=== PATIENT | female | born 1945 | race Caucasian/White ===

== ENCOUNTER 2016-06-10 01:53 | Inpatient (IN) | payer MEDICARE ==
[~2016-06-10] VITALS: Ht 172.7 cm; Wt 79.6 kg
[~2016-06-10 01:53] MED LIST: AMIO200T42 PO; ASPI-515 PO; BENZ100C4 PO; CEFD300C2 PO; DOXY100T PO; FERR140T2 PO; FERR324T5 PO; FURO20TA3 PO; METO-99 PO; METO100T3 PO; METO25TA35 PO; METO25TA91 PO; OXYC5CAP4 PO; POTA20TA91 PO; PRED20TA PO; RIVA20TA PO; SITA1TAB PO; SITA1TAB5 PO; TRAM50TA2 PO
[2016-06-10] MEDS ORDERED: SODIUM CHLORIDE 0.9% 1,000ML IVBOLUS ONE ×2 (02:30→04:00)
[2016-06-10 02:46] LABS: HEMOGLOBIN 9.2 g/dL (11.7-16.4)
[2016-06-10 02:56] LABS: ASPARTATE AMINO TRANSFERASE 68 U/L (15-37); BLOOD UREA NITROGEN 26 mg/dL (7-18)
[2016-06-10] MEDS ORDERED: PIPERACILLIN/TAZO/PMX 3.375GM 50 ML IV ONE (03:00)
[2016-06-10 03:06] LABS: DIFF TOTAL CELLS COUNTED 100 CELL DIFF
[2016-06-10 03:10] LABS: ANISOCYTOSIS 1+
[2016-06-10 03:11] LABS: LARGE PLATELETS 1+; POLYCHROMASIA 1+
[2016-06-10 03:12] LABS: VERIFY COUNTS? YES
[2016-06-10] MEDS ORDERED: PIPERACILLIN/TAZO/PMX 3.375GM 50 ML ONE (03:42)
[2016-06-10] MEDS ORDERED: VANCOMYCIN PER PHARMACY IV ONE (04:00)
[2016-06-10] MEDS ORDERED: VANCOMYCIN 1,400 MG in SODIUM CHLORIDE 0.9% 250 ML IV ONE (04:00)
[2016-06-10] MEDS: SODIUM CHLORIDE 0.9% 1,000 ML IV SCH ×4 (04:21→22:18)
[2016-06-10] MEDS ORDERED: ONDANSETRON 2MG/ML, 2ML ONE (04:25)
[2016-06-10] MEDS ORDERED: BISACODYL 10 MG SUPP PR PRN (04:30)
[2016-06-10] MEDS ORDERED: VANCOMYCIN PER PHARMACY MC PRN (04:30)
[2016-06-10] MEDS ORDERED: ONDANSETRON 2MG/ML, 2ML IVP PRN (04:30)
[2016-06-10] MEDS: PIPERACILLIN/TAZO/PMX 3.375GM 50 ML IV SCH ×4 (04:57→21:16)
[2016-06-10] MEDS ORDERED: ONDANSETRON 2MG/ML, 2ML IVPush ONE (05:00)
[2016-06-10] MEDS ORDERED: PHARMACOKINETIC CONSULTATION MC ONE (06:30)
[2016-06-10] MEDS ORDERED: PHARMACOKINETIC MONITORING MC PRN (06:30)
[2016-06-10] MEDS: MORPHINE SULFATE 4 MG/ML, 1ML IVPush PRN ×2 (07:24→20:17)
[2016-06-10] MEDS: INSULIN REGULAR 100 UNITS/ML, 3ML VIAL SQ-INSULIN SCH ×4 (07:47→21:33)
[2016-06-10] MEDS: KETOROLAC 30 MG/1 ML IV SCH ×3 (10:51→21:15)
[2016-06-10] MEDS: NOREPINEPHRINE 4 MG in SODIUM CHLORIDE 0.9% 246 ML IV PRN ×2 (11:52→22:19)
[2016-06-10 15:22] VITALS: BP 82/48
[2016-06-10] MEDS: ENOXAPARIN 40 MG/0.4 ML SQ SCH (17:23)
[2016-06-11] MEDS: KETOROLAC 30 MG/1 ML IV SCH ×4 (03:53→22:44)
[2016-06-11] MEDS: PIPERACILLIN/TAZO/PMX 3.375GM 50 ML IV SCH ×3 (03:54→17:20)
[2016-06-11] MEDS: SODIUM CHLORIDE 0.9% 1,000 ML IV SCH ×2 (03:54→20:23)
[2016-06-11 04:12] LABS: HEMOGLOBIN 8.4 g/dL (11.7-16.4)
[2016-06-11 04:26] LABS: ASPARTATE AMINO TRANSFERASE 55 U/L (15-37); BLOOD UREA NITROGEN 17 mg/dL (7-18)
[2016-06-11 04:28] LABS: DIFF TOTAL CELLS COUNTED 100 CELL DIFF
[2016-06-11] MEDS: INSULIN REGULAR 100 UNITS/ML, 3ML VIAL SQ-INSULIN SCH ×4 (04:30→20:39)
[2016-06-11 04:32] LABS: ANISOCYTOSIS 1+; VERIFY COUNTS? YES
[2016-06-11 04:33] LABS: LARGE PLATELETS 1+; POIKILOCYTOSIS 1+; POLYCHROMASIA 1+
[2016-06-11 05:24] LABS: HEPATITIS C VIRUS ANTIBODY Nonreactive (Nonreactive)
[2016-06-11] MEDS ORDERED: MAGNESIUM SULFATE PMX 4GM/100M 100 ML IV ONE (07:30)
[2016-06-11 13:58] VITALS: BP 102/62
[2016-06-11] MEDS: MORPHINE SULFATE 4 MG/ML, 1ML IVPush PRN (15:48)
[2016-06-11] MEDS ORDERED: GADOBUTROL 10 MMOL/10 ML PFS ONE (15:53)
[2016-06-11] MEDS: ENOXAPARIN 40 MG/0.4 ML SQ SCH (17:20)
[2016-06-11 18:38] VITALS: BP 107/54
[2016-06-12] MEDS: PIPERACILLIN/TAZO/PMX 3.375GM 50 ML IV SCH ×4 (00:17→18:53)
[2016-06-12 00:52] VITALS: BP 106/55
[2016-06-12] MEDS: MORPHINE SULFATE 4 MG/ML, 1ML IVPush PRN ×2 (02:14→12:46)
[2016-06-12] MEDS: INSULIN REGULAR 100 UNITS/ML, 3ML VIAL SQ-INSULIN SCH ×4 (04:30→20:48)
[2016-06-12] MEDS: KETOROLAC 30 MG/1 ML IV SCH ×4 (04:35→22:02)
[2016-06-12 05:17] LABS: HEMOGLOBIN 8.1 g/dL (11.7-16.4)
[2016-06-12 05:50] LABS: DIFF TOTAL CELLS COUNTED 100 CELL DIFF
[2016-06-12 05:52] LABS: ANISOCYTOSIS 1+; HYPOCHROMIA 1+; POLYCHROMASIA 1+; VERIFY COUNTS? YES
[2016-06-12 05:53] LABS: LARGE PLATELETS 1+
[2016-06-12 05:55] LABS: SCHISTOCYTES 1+
[2016-06-12 06:00] LABS: MICROCYTOSIS 1+
[2016-06-12 08:34] VITALS: BP 136/82
[2016-06-12] MEDS: METOPROLOL TARTRATE 25 MG TABLET PO SCH ×2 (09:02→18:19)
[2016-06-12 12:25] VITALS: BP 111/70
[2016-06-12] MEDS ORDERED: SODIUM BICARBONATE 4.2%, 5ML ONE (14:18)
[2016-06-12] MEDS ORDERED: LIDOCAINE 2%, 20ML ONE (14:19)
[2016-06-12] MEDS ORDERED: MIDAZOLAM 1 MG/ML, 5ML ONE (14:35)
[2016-06-12] MEDS ORDERED: NALOXONE 1 MG/ML, 2ML ONE (14:36)
[2016-06-12] MEDS ORDERED: FENTANYL PF 100 MCG/2ML ONE (14:36)
[2016-06-12] MEDS ORDERED: FLUMAZENIL 0.1 MG/1 ML, 5ML ONE (14:36)
[2016-06-12] MEDS: SODIUM CHLORIDE 0.9% 1,000 ML IV SCH (18:11)
[2016-06-12] MEDS: ENOXAPARIN 40 MG/0.4 ML SQ SCH (18:20)
[2016-06-12 19:43] VITALS: BP 98/58
[2016-06-13] MEDS: PIPERACILLIN/TAZO/PMX 3.375GM 50 ML IV SCH ×5 (00:08→23:17)
[2016-06-13] MEDS: SODIUM CHLORIDE 0.9% 1,000 ML IV SCH ×3 (00:21→20:32)
[2016-06-13 01:17] VITALS: BP 106/68
[2016-06-13] MEDS: KETOROLAC 30 MG/1 ML IV SCH ×4 (03:59→20:32)
[2016-06-13] MEDS: METOPROLOL TARTRATE 25 MG TABLET PO SCH ×2 (05:11→18:34)
[2016-06-13 05:47] LABS: HEMOGLOBIN 8.4 g/dL (11.7-16.4)
[2016-06-13 06:22] LABS: DIFF TOTAL CELLS COUNTED 100 CELL DIFF
[2016-06-13 06:23] LABS: ASPARTATE AMINO TRANSFERASE 46 U/L (15-37); BLOOD UREA NITROGEN 17 mg/dL (7-18); VERIFY COUNTS? YES
[2016-06-13 06:25] LABS: ANISOCYTOSIS 1+; POLYCHROMASIA 1+
[2016-06-13 06:26] LABS: LARGE PLATELETS 1+
[2016-06-13] MEDS: INSULIN REGULAR 100 UNITS/ML, 3ML VIAL SQ-INSULIN SCH ×4 (07:00→20:34)
[2016-06-13 08:44] VITALS: BP 113/81
[2016-06-13] MEDS ORDERED: LIDOCAINE 2%, 20ML ONE (10:20)
[2016-06-13] MEDS ORDERED: SODIUM BICARBONATE 4.2%, 5ML ONE (10:20)
[2016-06-13 11:30] VITALS: BP 104/59
[2016-06-13 11:53] LABS: CYTOLOGY BODY FLUID RECD INTO PATHOLOGY; CYTOLOGY BODY FLUID SOURCE PLEURAL FLUID
[2016-06-13 14:56] VITALS: BP 112/69
[2016-06-13] MEDS: ENOXAPARIN 40 MG/0.4 ML SQ SCH (17:07)
[2016-06-13 20:41] VITALS: BP 95/63
[2016-06-13] MEDS: MORPHINE SULFATE 4 MG/ML, 1ML IVPush PRN (23:17)
[2016-06-14 01:52] VITALS: BP 121/74
[2016-06-14] MEDS: KETOROLAC 30 MG/1 ML IV SCH ×4 (04:19→20:58)
[2016-06-14 05:03] LABS: HEMOGLOBIN 8.3 g/dL (11.7-16.4)
[2016-06-14] MEDS: PIPERACILLIN/TAZO/PMX 3.375GM 50 ML IV SCH ×4 (05:18→23:10)
[2016-06-14] MEDS: SODIUM CHLORIDE 0.9% 1,000 ML IV SCH (05:18)
[2016-06-14] MEDS: METOPROLOL TARTRATE 25 MG TABLET PO SCH (05:20)
[2016-06-14 05:24] LABS: ASPARTATE AMINO TRANSFERASE 35 U/L (15-37); BLOOD UREA NITROGEN 15 mg/dL (7-18)
[2016-06-14] MEDS: INSULIN REGULAR 100 UNITS/ML, 3ML VIAL SQ-INSULIN SCH ×4 (07:00→20:57)
[2016-06-14 08:30] VITALS: BP 104/69
[2016-06-14] MEDS: MORPHINE SULFATE 4 MG/ML, 1ML IVPush PRN ×2 (10:07→21:59)
[2016-06-14 14:55] VITALS: BP 118/78
[2016-06-14] MEDS: ENOXAPARIN 40 MG/0.4 ML SQ SCH (17:52)
[2016-06-14] MEDS: METOPROLOL TARTRATE 50 MG TABLET PO SCH (17:52)
[2016-06-14 20:59] VITALS: BP 122/75
[2016-06-15 00:32] VITALS: BP 98/62
[2016-06-15] MEDS: KETOROLAC 30 MG/1 ML IV SCH (03:05)
[2016-06-15 03:26] LABS: HEMOGLOBIN 8.1 g/dL (11.7-16.4)
[2016-06-15 03:46] LABS: DIFF TOTAL CELLS COUNTED 100 CELL DIFF
[2016-06-15 03:48] LABS: ANISOCYTOSIS 1+; LARGE PLATELETS 1+; POLYCHROMASIA 1+; VERIFY COUNTS? YES
[2016-06-15] MEDS: METOPROLOL TARTRATE 50 MG TABLET PO SCH ×2 (05:31→21:35)
[2016-06-15] MEDS: PIPERACILLIN/TAZO/PMX 3.375GM 50 ML IV SCH ×4 (05:32→23:46)
[2016-06-15] MEDS: MORPHINE SULFATE 4 MG/ML, 1ML IVPush PRN ×2 (05:32→21:36)
[2016-06-15 07:15] VITALS: BP 109/70
[2016-06-15] MEDS: INSULIN REGULAR 100 UNITS/ML, 3ML VIAL SQ-INSULIN SCH ×4 (08:36→21:36)
[2016-06-15 14:00] VITALS: BP 108/71
[2016-06-15] MEDS: AMIODARONE 200 MG TABLET PO SCH (16:48)
[2016-06-15 18:21] LABS: ANA SCREEN NEGATIVE (Negative)
[2016-06-15] MEDS: RIVAROXABAN 20 MG TABLET PO SCH (18:37)
[2016-06-15 19:30] VITALS: BP 148/90
[2016-06-16 01:15] VITALS: BP 115/80
[2016-06-16 04:01] LABS: HEMOGLOBIN 7.9 g/dL (11.7-16.4)
[2016-06-16 04:05] LABS: ASPARTATE AMINO TRANSFERASE 24 U/L (15-37); BLOOD UREA NITROGEN 9 mg/dL (7-18)
[2016-06-16 04:20] LABS: DIFF TOTAL CELLS COUNTED 100 CELL DIFF
[2016-06-16 04:22] LABS: ANISOCYTOSIS 1+; POLYCHROMASIA 1+; VERIFY COUNTS? YES
[2016-06-16 04:24] LABS: GIANT PLATELETS 1+; LARGE PLATELETS 1+
[2016-06-16] MEDS: PIPERACILLIN/TAZO/PMX 3.375GM 50 ML IV SCH ×4 (06:03→23:00)
[2016-06-16] MEDS: METOPROLOL TARTRATE 50 MG TABLET PO SCH ×2 (06:03→16:59)
[2016-06-16] MEDS: INSULIN REGULAR 100 UNITS/ML, 3ML VIAL SQ-INSULIN SCH ×4 (07:00→22:24)
[2016-06-16 07:02] VITALS: BP 127/79
[2016-06-16] MEDS ORDERED: AMIODARONE 200 MG TABLET PO SCH (09:00)
[2016-06-16] MEDS: FUROSEMIDE 20 MG TABLET PO SCH (09:45)
[2016-06-16] MEDS: AMIODARONE 200 MG TABLET PO SCH (09:45)
[2016-06-16] MEDS: ERGOCALCIFEROL 50,000 UNIT CAPSULE PO SCH (11:18)
[2016-06-16 12:31] VITALS: BP 102/63
[2016-06-16 14:07] LABS: IGG SUBCLASS 1 288 mg/dL (422-1292); IGG SUBCLASS 2 180 mg/dL (117-747); IGG SUBCLASS 3 79 mg/dL (41-129); IGG SUBCLASS 4 21 mg/dL (1-291); IMMUNOGLOBULIN G 558 mg/dL (700-1600)
[2016-06-16] MEDS: RIVAROXABAN 20 MG TABLET PO SCH (16:59)
[2016-06-16 20:20] VITALS: BP 119/73
[2016-06-16] MEDS: MORPHINE SULFATE 4 MG/ML, 1ML IVPush PRN (22:24)
[2016-06-17 02:55] VITALS: BP 112/70
[2016-06-17] MEDS: MORPHINE SULFATE 4 MG/ML, 1ML IVPush PRN ×2 (03:26→22:06)
[2016-06-17] MEDS: METOPROLOL TARTRATE 50 MG TABLET PO SCH ×2 (05:35→17:22)
[2016-06-17] MEDS: PIPERACILLIN/TAZO/PMX 3.375GM 50 ML IV SCH ×4 (05:35→23:17)
[2016-06-17 06:03] LABS: HEMOGLOBIN 8.4 g/dL (11.7-16.4)
[2016-06-17 06:11] LABS: BLOOD UREA NITROGEN 7 mg/dL (7-18)
[2016-06-17 06:25] LABS: DIFF TOTAL CELLS COUNTED 100 CELL DIFF
[2016-06-17 06:42] VITALS: BP 112/70
[2016-06-17 06:46] LABS: ANISOCYTOSIS 1+; GIANT PLATELETS 1+; LARGE PLATELETS 1+; POLYCHROMASIA 1+; VERIFY COUNTS? YES
[2016-06-17] MEDS: INSULIN REGULAR 100 UNITS/ML, 3ML VIAL SQ-INSULIN SCH ×4 (07:00→22:05)
[2016-06-17] MEDS: FUROSEMIDE 20 MG TABLET PO SCH (08:42)
[2016-06-17] MEDS: AMIODARONE 200 MG TABLET PO SCH (08:42)
[2016-06-17 12:55] VITALS: BP 114/75
[2016-06-17 16:51] LABS: HEMOGLOBIN 8.6 g/dL (11.7-16.4)
[2016-06-17 18:48] LABS: OCCBLD OBC PASS
[2016-06-17 19:27] VITALS: BP 115/77
[2016-06-18 02:37] VITALS: BP 122/71
[2016-06-18] MEDS: METOPROLOL TARTRATE 50 MG TABLET PO SCH ×2 (06:40→18:00)
[2016-06-18] MEDS: PIPERACILLIN/TAZO/PMX 3.375GM 50 ML IV SCH ×3 (06:40→18:30)
[2016-06-18] MEDS: AMIODARONE 200 MG TABLET PO SCH (08:26)
[2016-06-18] MEDS: INSULIN REGULAR 100 UNITS/ML, 3ML VIAL SQ-INSULIN SCH ×4 (08:26→19:55)
[2016-06-18] MEDS: FUROSEMIDE 20 MG TABLET PO SCH (09:00)
[2016-06-18 09:04] VITALS: BP 101/68
[2016-06-18 10:19] LABS: HEMOGLOBIN 8.1 g/dL (11.7-16.4)
[2016-06-18] MEDS ORDERED: MAGNESIUM HYDROXIDE 8%, 30ML UDC PO PRN (12:00)
[2016-06-18] MEDS ORDERED: FUROSEMIDE 20 MG/2 ML IV ONE (12:00)
[2016-06-18] MEDS: GUAIFENESIN 200 MG TABLET PO PRN ×2 (12:25→21:27)
[2016-06-18 13:33] VITALS: BP 92/61
[2016-06-18 16:58] LABS: HEMOGLOBIN 8.3 g/dL (11.7-16.4)
[2016-06-18] MEDS ORDERED: OMNIPAQUE 350 MG/ML, 100ML BOTTLE ONE (19:16)
[2016-06-18 19:39] VITALS: BP 155/85
[2016-06-18] MEDS: MORPHINE SULFATE 4 MG/ML, 1ML IVPush PRN (19:48)
[2016-06-18 21:38] LABS: HEMOGLOBIN 8.3 g/dL (11.7-16.4)
[2016-06-19 01:50] VITALS: BP 116/67
[2016-06-19] MEDS: MORPHINE SULFATE 4 MG/ML, 1ML IVPush PRN ×3 (02:05→22:36)
[2016-06-19 03:22] LABS: HEMOGLOBIN 8.1 g/dL (11.7-16.4)
[2016-06-19 03:24] LABS: ASPARTATE AMINO TRANSFERASE 23 U/L (15-37); BLOOD UREA NITROGEN 7 mg/dL (7-18)
[2016-06-19 04:27] LABS: DIFF TOTAL CELLS COUNTED 100 CELL DIFF
[2016-06-19 04:29] LABS: ANISOCYTOSIS 1+
[2016-06-19 04:30] LABS: POLYCHROMASIA 1+
[2016-06-19 04:31] LABS: VERIFY COUNTS? YES
[2016-06-19] MEDS: PIPERACILLIN/TAZO/PMX 3.375GM 50 ML IV SCH ×5 (06:04→23:45)
[2016-06-19] MEDS: METOPROLOL TARTRATE 50 MG TABLET PO SCH ×2 (06:04→18:00)
[2016-06-19] MEDS: INSULIN REGULAR 100 UNITS/ML, 3ML VIAL SQ-INSULIN SCH ×4 (07:00→20:27)
[2016-06-19] MEDS: FUROSEMIDE 20 MG TABLET PO SCH (09:18)
[2016-06-19] MEDS: POLYETHYLENE GLYCOL 17 GM PACKET PO SCH (09:19)
[2016-06-19] MEDS: AMIODARONE 200 MG TABLET PO SCH (09:19)
[2016-06-19 09:29] VITALS: BP 102/64
[2016-06-19 10:18] LABS: HEMOGLOBIN 8.1 g/dL (11.7-16.4)
[2016-06-19 13:25] VITALS: BP 95/54
[2016-06-19 16:37] LABS: HEMOGLOBIN 8.5 g/dL (11.7-16.4)
[2016-06-19 19:15] VITALS: BP 104/68
[2016-06-19 21:22] LABS: HEMOGLOBIN 8.1 g/dL (11.7-16.4)
[2016-06-20] MEDS: MORPHINE SULFATE 4 MG/ML, 1ML IVPush PRN ×3 (01:46→21:30)
[2016-06-20 03:12] VITALS: BP 99/63
[2016-06-20 03:45] LABS: HEMOGLOBIN 7.7 g/dL (11.7-16.4)
[2016-06-20 04:19] LABS: ANISOCYTOSIS 1+; POLYCHROMASIA 1+
[2016-06-20 04:20] LABS: LARGE PLATELETS 1+; POIKILOCYTOSIS 1+
[2016-06-20 05:07] LABS: ASPARTATE AMINO TRANSFERASE 19 U/L (15-37); BLOOD UREA NITROGEN 7 mg/dL (7-18)
[2016-06-20] MEDS: PIPERACILLIN/TAZO/PMX 3.375GM 50 ML IV SCH ×3 (05:44→18:27)
[2016-06-20] MEDS: METOPROLOL TARTRATE 50 MG TABLET PO SCH ×2 (05:44→18:27)
[2016-06-20] MEDS: INSULIN REGULAR 100 UNITS/ML, 3ML VIAL SQ-INSULIN SCH ×4 (07:00→21:33)
[2016-06-20 07:43] VITALS: BP 106/67
[2016-06-20] MEDS ORDERED: POTASSIUM CHLORIDE 20 MEQ TAB.ER.PRT PO ONE (08:00)
[2016-06-20] MEDS: AMIODARONE 200 MG TABLET PO SCH (08:08)
[2016-06-20] MEDS: POLYETHYLENE GLYCOL 17 GM PACKET PO SCH (08:08)
[2016-06-20] MEDS: FUROSEMIDE 20 MG TABLET PO SCH (08:08)
[2016-06-20] MEDS: RIVAROXABAN 20 MG TABLET PO SCH (10:01)
[2016-06-20 14:00] VITALS: BP 113/67
[2016-06-20] MEDS ORDERED: FUROSEMIDE 20 MG/2 ML IV ONE (17:00)
[2016-06-20 19:46] VITALS: BP 109/62
[2016-06-21] MEDS: PIPERACILLIN/TAZO/PMX 3.375GM 50 ML IV SCH ×4 (00:21→19:03)
[2016-06-21 01:24] VITALS: BP 102/58
[2016-06-21] MEDS: MORPHINE SULFATE 4 MG/ML, 1ML IVPush PRN ×3 (02:04→22:10)
[2016-06-21 05:28] LABS: HEMOGLOBIN 7.9 g/dL (11.7-16.4)
[2016-06-21 05:35] LABS: BLOOD UREA NITROGEN 7 mg/dL (7-18)
[2016-06-21 05:52] LABS: ASPARTATE AMINO TRANSFERASE 18 U/L (15-37)
[2016-06-21] MEDS: METOPROLOL TARTRATE 50 MG TABLET PO SCH ×2 (06:06→19:02)
[2016-06-21] MEDS: RIVAROXABAN 20 MG TABLET PO SCH (06:06)
[2016-06-21 06:12] LABS: ANISOCYTOSIS 1+
[2016-06-21 06:14] LABS: POLYCHROMASIA 1+
[2016-06-21 06:15] LABS: POIKILOCYTOSIS 1+
[2016-06-21 06:16] LABS: GIANT PLATELETS 1+; LARGE PLATELETS 1+
[2016-06-21] MEDS: INSULIN REGULAR 100 UNITS/ML, 3ML VIAL SQ-INSULIN SCH ×4 (07:00→20:33)
[2016-06-21 07:02] VITALS: BP 108/72
[2016-06-21] MEDS: POLYETHYLENE GLYCOL 17 GM PACKET PO SCH (08:00)
[2016-06-21] MEDS: AMIODARONE 200 MG TABLET PO SCH (08:01)
[2016-06-21] MEDS: FUROSEMIDE 20 MG TABLET PO SCH (09:50)
[2016-06-21 13:43] VITALS: BP 89/63
[2016-06-21 13:57] VITALS: BP 95/53
[2016-06-21 16:06] LABS: N.MENINGITIDIS TYPE A IGG 0.7 ug/mL (.); N.MENINGITIDIS TYPE C IGG 0.9 ug/mL (.); N.MENINGITIDIS TYPE Y IGG 0.5 ug/mL (.); N.MENINIGITIDIS TYPE W-135 IGG 0.2 ug/mL (.)
[2016-06-21 19:47] VITALS: BP 105/68
[2016-06-22] MEDS: PIPERACILLIN/TAZO/PMX 3.375GM 50 ML IV SCH ×4 (00:27→19:55)
[2016-06-22] MEDS: MORPHINE SULFATE 4 MG/ML, 1ML IVPush PRN ×4 (01:19→20:08)
[2016-06-22 01:21] VITALS: BP 123/60
[2016-06-22] MEDS: RIVAROXABAN 20 MG TABLET PO SCH (06:16)
[2016-06-22] MEDS: METOPROLOL TARTRATE 50 MG TABLET PO SCH ×2 (06:37→18:39)
[2016-06-22 06:57] VITALS: BP 114/75
[2016-06-22] MEDS: POLYETHYLENE GLYCOL 17 GM PACKET PO SCH (08:27)
[2016-06-22] MEDS: AMIODARONE 200 MG TABLET PO SCH (08:27)
[2016-06-22] MEDS: FUROSEMIDE 40 MG TABLET PO SCH (08:27)
[2016-06-22] MEDS: INSULIN REGULAR 100 UNITS/ML, 3ML VIAL SQ-INSULIN SCH ×4 (08:27→20:17)
[2016-06-22 08:30] LABS: ASPARTATE AMINO TRANSFERASE 20 U/L (15-37); BLOOD UREA NITROGEN 9 mg/dL (7-18)
[2016-06-22 09:06] LABS: HEMOGLOBIN 8.3 g/dL (11.7-16.4)
[2016-06-22 09:07] LABS: DIFF TOTAL CELLS COUNTED 100 CELL DIFF
[2016-06-22 09:09] LABS: ANISOCYTOSIS 1+; POLYCHROMASIA 1+; VERIFY COUNTS? YES
[2016-06-22 09:10] LABS: POIKILOCYTOSIS 1+
[2016-06-22 09:11] LABS: LARGE PLATELETS 1+
[2016-06-22 13:00] VITALS: BP 109/72
[2016-06-22 19:18] VITALS: BP 107/68
[2016-06-23 01:16] VITALS: BP 116/71
[2016-06-23] MEDS: PIPERACILLIN/TAZO/PMX 3.375GM 50 ML IV SCH ×4 (03:00→20:35)
[2016-06-23] MEDS: MORPHINE SULFATE 4 MG/ML, 1ML IVPush PRN ×4 (03:01→21:47)
[2016-06-23 06:04] LABS: HEMOGLOBIN 7.8 g/dL (11.7-16.4)
[2016-06-23] MEDS: RIVAROXABAN 20 MG TABLET PO SCH (06:13)
[2016-06-23] MEDS: METOPROLOL TARTRATE 50 MG TABLET PO SCH ×2 (06:14→18:25)
[2016-06-23 06:38] VITALS: BP 121/73
[2016-06-23] MEDS: INSULIN REGULAR 100 UNITS/ML, 3ML VIAL SQ-INSULIN SCH ×4 (07:00→21:47)
[2016-06-23] MEDS: AMIODARONE 200 MG TABLET PO SCH (07:54)
[2016-06-23] MEDS: POLYETHYLENE GLYCOL 17 GM PACKET PO SCH (09:00)
[2016-06-23] MEDS: FUROSEMIDE 40 MG TABLET PO SCH (09:00)
[2016-06-23] MEDS: ERGOCALCIFEROL 50,000 UNIT CAPSULE PO SCH (11:24)
[2016-06-23 14:19] VITALS: BP 110/58
[2016-06-23] MEDS ORDERED: FUROSEMIDE 20 MG/2 ML ONE (18:35)
[2016-06-23] MEDS ORDERED: FUROSEMIDE 20 MG/2 ML IV ONE (19:00)
[2016-06-23] MEDS: ALBUTEROL SULFATE 2.5 MG/3 ML NPPB PRN (19:04)
[2016-06-23 19:24] VITALS: BP 111/70
[2016-06-24 01:21] VITALS: BP 100/62
[2016-06-24] MEDS: PIPERACILLIN/TAZO/PMX 3.375GM 50 ML IV SCH ×4 (02:01→20:39)
[2016-06-24] MEDS: MORPHINE SULFATE 4 MG/ML, 1ML IVPush PRN ×2 (03:27→19:43)
[2016-06-24 04:49] LABS: HEMOGLOBIN 7.7 g/dL (11.7-16.4)
[2016-06-24 05:29] LABS: ANISOCYTOSIS 1+; HYPOCHROMIA 1+; POIKILOCYTOSIS 1+; POLYCHROMASIA 1+
[2016-06-24 05:30] LABS: TARGET CELLS 1+
[2016-06-24 05:31] LABS: LARGE PLATELETS 1+
[2016-06-24] MEDS: METOPROLOL TARTRATE 50 MG TABLET PO SCH ×2 (06:06→16:46)
[2016-06-24 07:06] VITALS: BP 115/69
[2016-06-24 07:31] LABS: ASPARTATE AMINO TRANSFERASE 18 U/L (15-37); BLOOD UREA NITROGEN 11 mg/dL (7-18)
[2016-06-24] MEDS: AMIODARONE 200 MG TABLET PO SCH (08:13)
[2016-06-24] MEDS: POLYETHYLENE GLYCOL 17 GM PACKET PO SCH (08:13)
[2016-06-24] MEDS: INSULIN REGULAR 100 UNITS/ML, 3ML VIAL SQ-INSULIN SCH ×4 (08:14→21:26)
[2016-06-24] MEDS ORDERED: ALBUMIN HUMAN 25% 100 ML IV ONE (08:30)
[2016-06-24] MEDS ORDERED: FUROSEMIDE 20 MG/2 ML IV ONE (09:30)
[2016-06-24] MEDS: RIVAROXABAN 20 MG TABLET PO SCH (10:25)
[2016-06-24] MEDS: ALBUTEROL SULFATE 2.5 MG/3 ML NPPB PRN (10:50)
[2016-06-24 12:06] LABS: STREP PNEUMO TYPE 1 <0.3 ug/mL (>1.3); STREP PNEUMO TYPE 12 <0.3 ug/mL (>1.3); STREP PNEUMO TYPE 14 0.9 ug/mL (>1.3); STREP PNEUMO TYPE 19 0.9 ug/mL (>1.3); STREP PNEUMO TYPE 2 0.6 ug/mL (>1.3); STREP PNEUMO TYPE 20 0.9 ug/mL (>1.3); STREP PNEUMO TYPE 22 0.3 ug/mL (>1.3); STREP PNEUMO TYPE 23 <0.3 ug/mL (>1.3); STREP PNEUMO TYPE 26 <0.3 ug/mL (>1.3); STREP PNEUMO TYPE 3 1.2 ug/mL (>1.3); STREP PNEUMO TYPE 34 <0.3 ug/mL (>1.3); STREP PNEUMO TYPE 4 <0.3 ug/mL (>1.3); STREP PNEUMO TYPE 43 0.4 ug/mL (>1.3); STREP PNEUMO TYPE 5 0.8 ug/mL (>1.3); STREP PNEUMO TYPE 51 0.5 ug/mL (>1.3); STREP PNEUMO TYPE 54 0.5 ug/mL (>1.3); STREP PNEUMO TYPE 56 <0.3 ug/mL (>1.3); STREP PNEUMO TYPE 57 0.8 ug/mL (>1.3); STREP PNEUMO TYPE 68 0.4 ug/mL (>1.3); STREP PNEUMO TYPE 70 0.5 ug/mL (>1.3); STREP PNEUMO TYPE 8 0.7 ug/mL (>1.3); STREP PNEUMO TYPE 9 <0.3 ug/mL (>1.3)
[2016-06-24 13:53] VITALS: BP 115/68
[2016-06-24] MEDS: LORazepam 0.5MG TABLET PO PRN (14:58)
[2016-06-24 19:05] VITALS: BP 119/72
[2016-06-25 00:47] VITALS: BP 119/72
[2016-06-25] MEDS: PIPERACILLIN/TAZO/PMX 3.375GM 50 ML IV SCH ×4 (02:15→22:24)
[2016-06-25 04:18] LABS: HEMOGLOBIN 7.3 g/dL (11.7-16.4)
[2016-06-25 04:23] LABS: BLOOD UREA NITROGEN 10 mg/dL (7-18)
[2016-06-25 04:26] LABS: ASPARTATE AMINO TRANSFERASE 20 U/L (15-37)
[2016-06-25] MEDS: INSULIN REGULAR 100 UNITS/ML, 3ML VIAL SQ-INSULIN SCH ×4 (07:00→20:54)
[2016-06-25 07:39] VITALS: BP 136/79
[2016-06-25] MEDS ORDERED: LIDOCAINE 1%, 20ML ONE (08:01)
[2016-06-25] MEDS ORDERED: SODIUM BICARBONATE 4.2%, 5ML ONE (08:01)
[2016-06-25] MEDS: AMIODARONE 200 MG TABLET PO SCH (08:07)
[2016-06-25] MEDS: POLYETHYLENE GLYCOL 17 GM PACKET PO SCH (08:07)
[2016-06-25] MEDS: LORazepam 0.5MG TABLET PO PRN ×3 (08:07→20:54)
[2016-06-25] MEDS: METOPROLOL TARTRATE 50 MG TABLET PO SCH ×2 (08:07→18:24)
[2016-06-25] MEDS: MORPHINE SULFATE 4 MG/ML, 1ML IVPush PRN ×2 (13:50→20:54)
[2016-06-25 13:59] VITALS: BP 110/60
[2016-06-25] MEDS: RIVAROXABAN 20 MG TABLET PO SCH (18:24)
[2016-06-25 19:28] VITALS: BP 104/63
[2016-06-26 01:20] VITALS: BP 116/67
[2016-06-26] MEDS: PIPERACILLIN/TAZO/PMX 3.375GM 50 ML IV SCH ×4 (04:05→23:48)
[2016-06-26] MEDS: MORPHINE SULFATE 4 MG/ML, 1ML IVPush PRN ×2 (04:16→21:30)
[2016-06-26] MEDS: METOPROLOL TARTRATE 50 MG TABLET PO SCH ×2 (05:49→18:43)
[2016-06-26 07:26] VITALS: BP 118/62
[2016-06-26] MEDS: AMIODARONE 200 MG TABLET PO SCH (08:26)
[2016-06-26] MEDS: POLYETHYLENE GLYCOL 17 GM PACKET PO SCH (08:26)
[2016-06-26] MEDS: INSULIN REGULAR 100 UNITS/ML, 3ML VIAL SQ-INSULIN SCH ×4 (08:35→21:16)
[2016-06-26 13:16] VITALS: BP 118/74
[2016-06-26] MEDS: FUROSEMIDE 40 MG TABLET PO SCH (16:37)
[2016-06-26 16:39] LABS: ASPARTATE AMINO TRANSFERASE 27 U/L (15-37); BLOOD UREA NITROGEN 16 mg/dL (7-18)
[2016-06-26 16:52] LABS: HEMOGLOBIN 7.8 g/dL (11.7-16.4)
[2016-06-26] MEDS ORDERED: OMNIPAQUE 350 MG/ML, 100ML BOTTLE ONE (17:13)
[2016-06-26] MEDS: RIVAROXABAN 20 MG TABLET PO SCH (18:43)
[2016-06-26 18:56] VITALS: BP 103/64
[2016-06-26] MEDS: LORazepam 0.5MG TABLET PO PRN (21:30)
[2016-06-27 00:56] VITALS: BP 111/69
[2016-06-27] MEDS: MORPHINE SULFATE 4 MG/ML, 1ML IVPush PRN ×2 (01:11→21:35)
[2016-06-27] MEDS: METOPROLOL TARTRATE 50 MG TABLET PO SCH ×2 (05:59→18:39)
[2016-06-27] MEDS: PIPERACILLIN/TAZO/PMX 3.375GM 50 ML IV SCH ×3 (05:59→18:39)
[2016-06-27] MEDS: FUROSEMIDE 40 MG TABLET PO SCH ×2 (07:30→16:37)
[2016-06-27 07:35] VITALS: BP 107/72
[2016-06-27] MEDS: POLYETHYLENE GLYCOL 17 GM PACKET PO SCH (08:07)
[2016-06-27] MEDS: AMIODARONE 200 MG TABLET PO SCH (08:19)
[2016-06-27] MEDS: INSULIN REGULAR 100 UNITS/ML, 3ML VIAL SQ-INSULIN SCH ×4 (08:21→21:26)
[2016-06-27] MEDS ORDERED: POLY17PO5 PO (09:47)
[2016-06-27] MEDS ORDERED: ERGO500017 PO (09:47)
[2016-06-27] MEDS ORDERED: DOCU-30 PO (09:47)
[2016-06-27 13:40] VITALS: BP 105/68
[2016-06-27] MEDS: LORazepam 0.5MG TABLET PO PRN ×2 (16:51→22:55)
[2016-06-27] MEDS: RIVAROXABAN 20 MG TABLET PO SCH (18:38)
[2016-06-27 18:44] VITALS: BP 105/65
[2016-06-28] MEDS: PIPERACILLIN/TAZO/PMX 3.375GM 50 ML IV SCH ×4 (00:28→18:06)
[2016-06-28 02:40] VITALS: BP 115/69
[2016-06-28] MEDS: METOPROLOL TARTRATE 50 MG TABLET PO SCH ×2 (04:59→18:06)
[2016-06-28 06:01] LABS: HEMOGLOBIN 7.5 g/dL (11.7-16.4)
[2016-06-28 06:21] LABS: ASPARTATE AMINO TRANSFERASE 16 U/L (15-37); BLOOD UREA NITROGEN 12 mg/dL (7-18)
[2016-06-28 07:30] VITALS: BP 111/68
[2016-06-28] MEDS: FUROSEMIDE 40 MG TABLET PO SCH ×2 (07:30→17:00)
[2016-06-28] MEDS: INSULIN REGULAR 100 UNITS/ML, 3ML VIAL SQ-INSULIN SCH ×4 (08:05→21:16)
[2016-06-28] MEDS: POLYETHYLENE GLYCOL 17 GM PACKET PO SCH (08:06)
[2016-06-28] MEDS: AMIODARONE 200 MG TABLET PO SCH (08:06)
[2016-06-28 13:27] VITALS: BP 104/69
[2016-06-28] MEDS: MORPHINE SULFATE 4 MG/ML, 1ML IVPush PRN ×2 (15:42→21:33)
[2016-06-28] MEDS: RIVAROXABAN 20 MG TABLET PO SCH (18:07)
[2016-06-28 18:53] VITALS: BP 104/63
[2016-06-29] MEDS: LORazepam 0.5MG TABLET PO PRN (00:06)
[2016-06-29] MEDS: PIPERACILLIN/TAZO/PMX 3.375GM 50 ML IV SCH ×3 (00:06→14:31)
[2016-06-29 01:08] VITALS: BP 107/62
[2016-06-29] MEDS: MORPHINE SULFATE 4 MG/ML, 1ML IVPush PRN (01:16)
[2016-06-29] MEDS: METOPROLOL TARTRATE 50 MG TABLET PO SCH (06:11)
[2016-06-29 06:53] LABS: ASPARTATE AMINO TRANSFERASE 15 U/L (15-37); BLOOD UREA NITROGEN 13 mg/dL (7-18); HEMOGLOBIN 7.2 g/dL (11.7-16.4)
[2016-06-29] MEDS: INSULIN REGULAR 100 UNITS/ML, 3ML VIAL SQ-INSULIN SCH ×2 (07:00→11:46)
[2016-06-29 07:21] LABS: VERIFY COUNTS? YES
[2016-06-29 07:22] LABS: ANISOCYTOSIS 1+; HYPOCHROMIA 1+; LARGE PLATELETS 1+; POLYCHROMASIA 1+
[2016-06-29 07:25] LABS: DIFF TOTAL CELLS COUNTED 100
[2016-06-29] MEDS: FUROSEMIDE 40 MG TABLET PO SCH (07:30)
[2016-06-29 07:31] VITALS: BP 104/67
[2016-06-29] MEDS: AMIODARONE 200 MG TABLET PO SCH (07:48)
[2016-06-29] MEDS: POLYETHYLENE GLYCOL 17 GM PACKET PO SCH (07:48)
[2016-06-29] MEDS ORDERED: CATHFLO-ALTEPLASE 2 MG/2 ML CATHFLUSH ONE (09:30)
[2016-06-29 14:52] VITALS: BP 112/73
== END 2016-06-29 15:49 | DRG 871 ==
LOC: SUATTDRO 04:16 → ED 04:33 → EDIP 04:34 → ED 04:36 → CCU 06:19 → 3NW 06-11 13:50 → 3NE 06-20 13:20
PROC: 02HV33Z Insertion of Infusion Device into Superior Vena Cava, Percutaneous Approach (ICD-10-PCS; principal; 2016-06-10)
PROC: B548ZZA Ultrasonography of Superior Vena Cava, Guidance (ICD-10-PCS; 2016-06-10)
PROC: 0F9130Z Drainage of Right Lobe Liver with Drainage Device, Percutaneous Approach (ICD-10-PCS; 2016-06-12)
PROC: BF251ZZ Computerized Tomography (CT Scan) of Liver using Low Osmolar Contrast (ICD-10-PCS; 2016-06-12)
PROC: BF45ZZZ Ultrasonography of Liver (ICD-10-PCS; 2016-06-12)
PROC: 0W993ZX Drainage of Right Pleural Cavity, Percutaneous Approach, Diagnostic (ICD-10-PCS; 2016-06-13)
PROC: 0W9930Z Drainage of Right Pleural Cavity with Drainage Device, Percutaneous Approach (ICD-10-PCS; 2016-06-25)
DX: A41.9 Sepsis, unspecified organism (principal); N17.0 Acute kidney failure with tubular necrosis; K75.0 Abscess of liver; E43 Unspecified severe protein-calorie malnutrition; K57.32 Diverticulitis of large intestine without perforation or abscess without bleeding; E87.1 Hypo-osmolality and hyponatremia; D68.9 Coagulation defect, unspecified; I50.32 Chronic diastolic (congestive) heart failure; J90 Pleural effusion, not elsewhere classified; M48.56XA Collapsed vertebra, not elsewhere classified, lumbar region, initial encounter for fracture; D68.59 Other primary thrombophilia; J98.11 Atelectasis; K92.2 Gastrointestinal hemorrhage, unspecified; E11.65 Type 2 diabetes mellitus with hyperglycemia; D86.9 Sarcoidosis, unspecified; D50.9 Iron deficiency anemia, unspecified; I11.0 Hypertensive heart disease with heart failure; E55.9 Vitamin D deficiency, unspecified; R19.00 Intra-abdominal and pelvic swelling, mass and lump, unspecified site; B02.9 Zoster without complications; D53.9 Nutritional anemia, unspecified; D75.89 Other specified diseases of blood and blood-forming organs; Z68.27 Body mass index [BMI] 27.0-27.9, adult; I27.2 Other secondary pulmonary hypertension; I34.0 Nonrheumatic mitral (valve) insufficiency; I48.2 Chronic atrial fibrillation; K44.9 Diaphragmatic hernia without obstruction or gangrene; K64.9 Unspecified hemorrhoids; K74.60 Unspecified cirrhosis of liver; M54.40 Lumbago with sciatica, unspecified side; R76.11 Nonspecific reaction to tuberculin skin test without active tuberculosis; Z79.01 Long term (current) use of anticoagulants; Z79.899 Other long term (current) drug therapy; Z80.0 Family history of malignant neoplasm of digestive organs; Z82.3 Family history of stroke; Z86.11 Personal history of tuberculosis; Z86.711 Personal history of pulmonary embolism; Z86.718 Personal history of other venous thrombosis and embolism; Z88.2 Allergy status to sulfonamides; Z88.5 Allergy status to narcotic agent; Z90.49 Acquired absence of other specified parts of digestive tract; Z90.89 Acquired absence of other organs
CPT/HCPCS: 32555; 36415; 36569; 49405; 71010; 74177; 74183; 76937; 77001; 80048; 80053; 80074; 81003; 82040; 82105; 82150; 82272; 82306; 82378; 82533; 82607; 82728; 82746; 82784; 82787; 82945; 82962; 83036; 83516; 83605; 83615; 83690; 83735; 83986; 84100; 84145; 84157; 84439; 84443; 85014; 85018; 85025; 85610; 85651; 85730; 86038; 86140; 86301; 86480; 86609; 86684; 86741; 87015; 87040; 87070; 87075; 87077; 87081; 87102; 87116; 87205; 87206; 88112; 88305; 89051; 93005; 93306; 93922; 93970; 94640; 96361; 96365; 96375; 99156; 99157; A9585; C1894; J1650; J1815; J1885; J2250; J2405; J2543; J2997; J3010; J3370; J3490; J7613; P9047; Q9967; C1729; C1751; C1769; J1940; J2310; J3475; J7030; J7050

== ENCOUNTER 2016-07-02 13:14 | Observation (INO) | payer MEDICARE ==
[~2016-07-02] VITALS: Ht 170.2 cm; Wt 82.4 kg
[~2016-07-02 13:14] MED LIST changes: +DOCU-30 PO; +ERGO500017 PO; +POLY17PO5 PO
[2016-07-02] MEDS ORDERED: SODIUM CHLORIDE 0.9% 1,000ML IVBOLUS ONE (14:00)
[2016-07-02 14:48] LABS: ASPARTATE AMINO TRANSFERASE 24 U/L (15-37); BLOOD UREA NITROGEN 15 mg/dL (7-18); HEMOGLOBIN 7.7 g/dL (11.7-16.4)
[2016-07-02 15:32] LABS: ANISOCYTOSIS 1+; POLYCHROMASIA 1+
[2016-07-02 15:33] LABS: HYPOCHROMIA 1+; LARGE PLATELETS 1+
[2016-07-02] MEDS ORDERED: OMNIPAQUE 350 MG/ML, 100ML BOTTLE ONE (15:48)
[2016-07-02] MEDS ORDERED: ONDANSETRON ODT 4 MG PO PRN (17:30)
[2016-07-02] MEDS ORDERED: POLYETHYLENE GLYCOL 17 GM PACKET PO PRN (17:30)
[2016-07-02] MEDS ORDERED: ONDANSETRON 2MG/ML, 2ML IVP PRN (17:30)
[2016-07-02] MEDS ORDERED: HYDROcodone/APAP 5/325 TABLET PO PRN (17:30)
[2016-07-02] MEDS ORDERED: LABETALOL 5MG/ML, 20ML IV PRN (17:30)
[2016-07-02] MEDS: ERGOCALCIFEROL 50,000 UNIT CAPSULE PO SCH ×2 (17:30→20:24)
[2016-07-02 18:05] VITALS: BP 119/76
[2016-07-02 19:19] VITALS: BP 111/80
[2016-07-02] MEDS: PIPERACILLIN/TAZO/PMX 3.375GM 50 ML IV SCH ×2 (20:25→23:22)
[2016-07-02] MEDS: metFORMIN 500 MG TABLET PO SCH (21:00)
[2016-07-02] MEDS ORDERED: METFORMIN HCL PO SCH (21:00)
[2016-07-02] MEDS: SITAGLIPTIN 50MG TABLET PO SCH (21:00)
[2016-07-02] MEDS ORDERED: SITAGLIPTIN PHOS PO SCH (21:00)
[2016-07-02] MEDS ORDERED: [UNRECOGNIZED DRUG - OTHER] PO SCH (21:00)
[2016-07-03 02:04] VITALS: BP 127/71
[2016-07-03 04:07] LABS: HEMOGLOBIN 7.4 g/dL (11.7-16.4)
[2016-07-03 04:09] LABS: ASPARTATE AMINO TRANSFERASE 22 U/L (15-37); BLOOD UREA NITROGEN 11 mg/dL (7-18)
[2016-07-03 04:31] LABS: ANISOCYTOSIS 1+; HYPOCHROMIA 1+; LARGE PLATELETS 1+; POLYCHROMASIA 1+
[2016-07-03] MEDS: PIPERACILLIN/TAZO/PMX 3.375GM 50 ML IV SCH ×2 (05:34→12:52)
[2016-07-03] MEDS ORDERED: METOPROLOL TARTRATE 50 MG TABLET PO SCH (06:00)
[2016-07-03 07:00] VITALS: BP 136/86
[2016-07-03] MEDS ORDERED: PANTOPRAZOLE 40 MG IV IVP SCH (07:30)
[2016-07-03] MEDS ORDERED: DOCUSATE 100 MG CAPSULE PO SCH (09:00)
[2016-07-03] MEDS ORDERED: RIVAROXABAN 20 MG TABLET PO SCH (09:00)
[2016-07-03] MEDS ORDERED: FUROSEMIDE 20 MG TABLET PO SCH (09:00)
[2016-07-03] MEDS ORDERED: FERROUS SULFATE 325 MG TABLET PO SCH (09:00)
[2016-07-03] MEDS ORDERED: POTASSIUM CHLORIDE 10 MEQ TABLET.ER PO SCH (09:00)
[2016-07-03] MEDS ORDERED: SENNA/DOCUSATE TABLET PO SCH (09:00)
[2016-07-03] MEDS ORDERED: AMIODARONE 200 MG TABLET PO SCH (09:00)
[2016-07-03] MEDS ORDERED: POLYETHYLENE GLYCOL 17 GM PACKET PO SCH (09:00)
[2016-07-03] MEDS: metFORMIN 500 MG TABLET PO SCH (09:59)
[2016-07-03] MEDS: SITAGLIPTIN 50MG TABLET PO SCH (09:59)
[2016-07-03] MEDS ORDERED: ALPR0.25 PO (14:05)
[2016-07-03 15:10] VITALS: BP 108/58
== END 2016-07-03 15:57 | disposition home or self-care (01) ==
LOC: ED 17:14 → UNDOADMOB 17:17 → EDIP 17:17 → INTOOBSV 17:17 → 3NE 17:21 → EDIP 17:58 → 3NE 17:58
PROVIDERS: ADMIT Hospitalist; ATTEND Hospitalist
DX: K65.9 Peritonitis, unspecified (principal); A41.9 Sepsis, unspecified organism; K57.92 Diverticulitis of intestine, part unspecified, without perforation or abscess without bleeding; J90 Pleural effusion, not elsewhere classified; K75.0 Abscess of liver; K92.2 Gastrointestinal hemorrhage, unspecified; S32.040A Wedge compression fracture of fourth lumbar vertebra, initial encounter for closed fracture; R97.0 Elevated carcinoembryonic antigen [CEA]; N17.9 Acute kidney failure, unspecified; E11.65 Type 2 diabetes mellitus with hyperglycemia; I48.2 Chronic atrial fibrillation; D68.69 Other thrombophilia; I50.32 Chronic diastolic (congestive) heart failure; I11.0 Hypertensive heart disease with heart failure; E56.9 Vitamin deficiency, unspecified; E43 Unspecified severe protein-calorie malnutrition; R74.8 Abnormal levels of other serum enzymes; D75.89 Other specified diseases of blood and blood-forming organs; I48.91 Unspecified atrial fibrillation; D72.829 Elevated white blood cell count, unspecified; D50.9 Iron deficiency anemia, unspecified; Z86.711 Personal history of pulmonary embolism; X58.XXXA Exposure to other specified factors, initial encounter; Y92.89 Other specified places as the place of occurrence of the external cause; Y93.89 Activity, other specified; Y99.8 Other external cause status
CPT/HCPCS: 36415; 71010; 74177; 80053; 81003; 82962; 83605; 83735; 83880; 84145; 84439; 84443; 85025; 87040; 93005; 96365; 96375; 96376; 99285; C9113; G0378; J2543; J7030; Q9967

== ENCOUNTER 2016-07-13 18:29 | Inpatient (IN) | payer MEDICARE ==
[~2016-07-13] VITALS: Ht 172.7 cm; Wt 85.9 kg
[~2016-07-13 18:29] MED LIST changes: +ALPR0.25 PO; -CEFD300C2 PO; +CEFD300C37 PO
[2016-07-13] MEDS ORDERED: SODIUM CHLORIDE FLUSH 10ML SYR IVF ONE (19:00)
[2016-07-13] MEDS ORDERED: ALBUTEROL/IPRATROPIUM 2.5MG/0.5MG, 3 ML ONE (19:22)
[2016-07-13] MEDS ORDERED: PLEASE ENTER HEIGHT AND WEIGHT MC SCH (19:30)
[2016-07-13] MEDS ORDERED: ALBUTEROL/IPRATROPIUM 2.5MG/0.5MG, 3 ML NPPB ONE (19:30)
[2016-07-13] MEDS ORDERED: DOXY100C15 PO (19:49)
[2016-07-13] MEDS ORDERED: IPRA3AMP NEB (19:49)
[2016-07-13 20:05] LABS: BLOOD UREA NITROGEN 14 mg/dL (7-18)
[2016-07-13 20:19] LABS: DIFF TOTAL CELLS COUNTED 100 CELL DIFF
[2016-07-13 20:20] LABS: ANISOCYTOSIS 1+; HYPOCHROMIA 1+; POLYCHROMASIA 1+; VERIFY COUNTS? YES
[2016-07-13 20:21] LABS: LARGE PLATELETS 1+; POIKILOCYTOSIS 1+
[2016-07-13] MEDS ORDERED: CEFTRIAXONE PMX 2GM/50ML 50 ML ONE (21:28)
[2016-07-13] MEDS ORDERED: CEFTRIAXONE PMX 2GM/50ML 50 ML IVPB ONE (21:30)
[2016-07-13] MEDS ORDERED: DOXYCYCLINE 100 MG in DEXTROSE 5% 250 ML IV SCH (21:30)
[2016-07-13] MEDS ORDERED: SODIUM CHLORIDE FLUSH 10ML SYR IVF PRN (21:30)
[2016-07-13] MEDS ORDERED: ERGOCALCIFEROL 50,000 UNIT CAPSULE PO SCH (22:30)
[2016-07-13] MEDS ORDERED: GUAIFENESIN/DM 200-20MG, 10ML UDC PO PRN (22:30)
[2016-07-13] MEDS ORDERED: VANCOMYCIN PER PHARMACY MC PRN (22:30)
[2016-07-13] MEDS ORDERED: PHARMACOKINETIC MONITORING MC PRN (23:00)
[2016-07-13] MEDS ORDERED: PHARMACOKINETIC CONSULTATION MC ONE (23:00)
[2016-07-13 23:18] VITALS: BP 121/81
[2016-07-13] MEDS ORDERED: ALBUTEROL/IPRATROPIUM 2.5MG/0.5MG, 3 ML NPPB PRN (23:30)
[2016-07-13] MEDS: VANCOMYCIN 1,500 MG in SODIUM CHLORIDE 0.9% 250 ML IV SCH (23:48)
[2016-07-13] MEDS: OXYcodone 5 MG/5 ML ORAL.SOL UDC PO PRN (23:48)
[2016-07-14 01:40] VITALS: BP 125/79
[2016-07-14 04:29] LABS: BLOOD UREA NITROGEN 13 mg/dL (7-18)
[2016-07-14 05:42] LABS: DIFF TOTAL CELLS COUNTED 100 CELL DIFF
[2016-07-14 05:43] LABS: ANISOCYTOSIS 1+; HYPOCHROMIA 1+; POLYCHROMASIA 1+; VERIFY COUNTS? YES
[2016-07-14 05:44] LABS: LARGE PLATELETS 1+
[2016-07-14] MEDS ORDERED: metFORMIN 500 MG TABLET PO SCH (08:00)
[2016-07-14 08:21] VITALS: BP 141/90
[2016-07-14] MEDS: DOCUSATE 100 MG CAPSULE PO SCH (09:00)
[2016-07-14] MEDS: FUROSEMIDE 20 MG TABLET PO SCH ×2 (09:00→09:17)
[2016-07-14] MEDS: POLYETHYLENE GLYCOL 17 GM PACKET PO SCH (09:00)
[2016-07-14] MEDS: FERROUS SULFATE 325 MG TABLET PO SCH (09:16)
[2016-07-14] MEDS: AMIODARONE 200 MG TABLET PO SCH (09:16)
[2016-07-14] MEDS: METOPROLOL TARTRATE 50 MG TABLET PO SCH ×2 (09:16→20:51)
[2016-07-14] MEDS: SITAGLIPTIN 50MG TABLET PO SCH ×2 (09:16→20:50)
[2016-07-14] MEDS: RIVAROXABAN 20 MG TABLET PO SCH (09:16)
[2016-07-14] MEDS: POTASSIUM CHLORIDE 10 MEQ TABLET.ER PO SCH (09:17)
[2016-07-14] MEDS: ALBUTEROL/IPRATROPIUM 2.5MG/0.5MG, 3 ML NPPB SCH ×3 (10:27→19:04)
[2016-07-14] MEDS: GUAIFENESIN 200 MG TABLET PO SCH ×3 (11:05→20:51)
[2016-07-14] MEDS: FUROSEMIDE 40 MG TABLET PO SCH (11:06)
[2016-07-14] MEDS: PIPERACILLIN/TAZO/PMX 3.375GM 50 ML IV SCH ×2 (11:06→17:32)
[2016-07-14] MEDS: ONDANSETRON ODT 4 MG PO PRN ×2 (12:27→20:51)
[2016-07-14 13:05] VITALS: BP 99/68
[2016-07-14 19:17] VITALS: BP 98/63
[2016-07-14] MEDS: OXYcodone 5 MG/5 ML ORAL.SOL UDC PO PRN (20:51)
[2016-07-14] MEDS: VANCOMYCIN 1,500 MG in SODIUM CHLORIDE 0.9% 250 ML IV SCH (23:50)
[2016-07-15 00:49] VITALS: BP 112/71
[2016-07-15] MEDS: PIPERACILLIN/TAZO/PMX 3.375GM 50 ML IV SCH ×3 (01:36→17:01)
[2016-07-15] MEDS: ACETAMINOPHEN 325 MG TABLET PO PRN (01:40)
[2016-07-15] MEDS: GUAIFENESIN 200 MG TABLET PO SCH ×4 (05:05→20:43)
[2016-07-15 05:44] LABS: BLOOD UREA NITROGEN 14 mg/dL (7-18)
[2016-07-15 05:55] LABS: DIFF TOTAL CELLS COUNTED 100 CELL DIFF
[2016-07-15 05:56] LABS: VERIFY COUNTS? YES
[2016-07-15 05:57] LABS: ANISOCYTOSIS 1+; HYPOCHROMIA 1+; POLYCHROMASIA 1+
[2016-07-15 05:58] LABS: LARGE PLATELETS 1+
[2016-07-15 07:18] VITALS: BP 106/69
[2016-07-15] MEDS: ALBUTEROL/IPRATROPIUM 2.5MG/0.5MG, 3 ML NPPB SCH ×4 (07:58→20:00)
[2016-07-15] MEDS: DOCUSATE 100 MG CAPSULE PO SCH (08:48)
[2016-07-15] MEDS: POLYETHYLENE GLYCOL 17 GM PACKET PO SCH (08:48)
[2016-07-15] MEDS: FUROSEMIDE 40 MG TABLET PO SCH (08:49)
[2016-07-15] MEDS: METOPROLOL TARTRATE 50 MG TABLET PO SCH ×2 (08:49→20:43)
[2016-07-15] MEDS: AMIODARONE 200 MG TABLET PO SCH (08:49)
[2016-07-15] MEDS: FERROUS SULFATE 325 MG TABLET PO SCH (08:49)
[2016-07-15] MEDS: SITAGLIPTIN 50MG TABLET PO SCH ×2 (08:49→20:43)
[2016-07-15] MEDS: RIVAROXABAN 20 MG TABLET PO SCH (08:49)
[2016-07-15] MEDS: POTASSIUM CHLORIDE 10 MEQ TABLET.ER PO SCH (08:49)
[2016-07-15] MEDS ORDERED: FUROSEMIDE 40 MG TABLET PO SCH (09:00)
[2016-07-15 14:52] VITALS: BP 110/62
[2016-07-15] MEDS ORDERED: OMNIPAQUE 350 MG/ML, 100ML BOTTLE ONE (17:32)
[2016-07-15 20:08] VITALS: BP 108/80
[2016-07-15] MEDS: OXYcodone 5 MG/5 ML ORAL.SOL UDC PO PRN (21:09)
[2016-07-15] MEDS: VANCOMYCIN 1,500 MG in SODIUM CHLORIDE 0.9% 250 ML IV SCH (23:45)
[2016-07-16] MEDS: PIPERACILLIN/TAZO/PMX 3.375GM 50 ML IV SCH ×3 (01:49→17:49)
[2016-07-16] MEDS: ACETAMINOPHEN 325 MG TABLET PO PRN ×2 (01:49→22:58)
[2016-07-16 01:53] VITALS: BP 114/73
[2016-07-16 05:25] LABS: BLOOD UREA NITROGEN 14 mg/dL (7-18)
[2016-07-16] MEDS: GUAIFENESIN 200 MG TABLET PO SCH ×4 (06:03→20:21)
[2016-07-16 06:50] VITALS: BP 108/60
[2016-07-16 06:55] VITALS: BP 118/74
[2016-07-16] MEDS: ALBUTEROL/IPRATROPIUM 2.5MG/0.5MG, 3 ML NPPB SCH ×4 (07:44→19:28)
[2016-07-16] MEDS: POLYETHYLENE GLYCOL 17 GM PACKET PO SCH (09:00)
[2016-07-16] MEDS: DOCUSATE 100 MG CAPSULE PO SCH (09:00)
[2016-07-16] MEDS: METOPROLOL TARTRATE 50 MG TABLET PO SCH ×2 (09:48→20:21)
[2016-07-16] MEDS: SITAGLIPTIN 50MG TABLET PO SCH ×2 (09:48→20:21)
[2016-07-16] MEDS: AMIODARONE 200 MG TABLET PO SCH (09:49)
[2016-07-16] MEDS: FERROUS SULFATE 325 MG TABLET PO SCH (09:49)
[2016-07-16] MEDS: FUROSEMIDE 40 MG TABLET PO SCH (09:49)
[2016-07-16] MEDS: RIVAROXABAN 20 MG TABLET PO SCH (09:49)
[2016-07-16 13:28] VITALS: BP 103/50
[2016-07-16 19:14] VITALS: BP 101/66
[2016-07-16] MEDS: OXYcodone 5 MG/5 ML ORAL.SOL UDC PO PRN (20:32)
[2016-07-17] MEDS: VANCOMYCIN 1,500 MG in SODIUM CHLORIDE 0.9% 250 ML IV SCH ×2 (00:02→23:58)
[2016-07-17 01:29] VITALS: BP 111/72
[2016-07-17] MEDS: PIPERACILLIN/TAZO/PMX 3.375GM 50 ML IV SCH ×3 (02:36→17:36)
[2016-07-17 05:26] LABS: BLOOD UREA NITROGEN 16 mg/dL (7-18)
[2016-07-17] MEDS: GUAIFENESIN 200 MG TABLET PO SCH ×4 (06:15→21:30)
[2016-07-17 06:59] VITALS: BP 119/79
[2016-07-17] MEDS: ALBUTEROL/IPRATROPIUM 2.5MG/0.5MG, 3 ML NPPB SCH ×2 (07:09→20:16)
[2016-07-17] MEDS: POLYETHYLENE GLYCOL 17 GM PACKET PO SCH (09:00)
[2016-07-17] MEDS: FUROSEMIDE 40 MG TABLET PO SCH (09:00)
[2016-07-17] MEDS: DOCUSATE 100 MG CAPSULE PO SCH (09:00)
[2016-07-17] MEDS: SITAGLIPTIN 50MG TABLET PO SCH ×2 (09:05→21:31)
[2016-07-17] MEDS: METOPROLOL TARTRATE 50 MG TABLET PO SCH ×2 (09:05→21:30)
[2016-07-17] MEDS: RIVAROXABAN 20 MG TABLET PO SCH (09:05)
[2016-07-17] MEDS: AMIODARONE 200 MG TABLET PO SCH (09:06)
[2016-07-17] MEDS: POTASSIUM CHLORIDE 20 MEQ TAB.ER.PRT PO SCH (09:06)
[2016-07-17] MEDS: FERROUS SULFATE 325 MG TABLET PO SCH (09:06)
[2016-07-17] MEDS: INSULIN ASPART 100 UNITS/ML, PEN SQ-INSULIN SCH ×4 (09:42→21:33)
[2016-07-17 12:37] VITALS: BP 107/70
[2016-07-17 18:17] VITALS: BP 116/77
[2016-07-17] MEDS: OXYcodone 5 MG/5 ML ORAL.SOL UDC PO PRN (21:31)
[2016-07-17] MEDS: ACETAMINOPHEN 325 MG TABLET PO PRN (23:58)
[2016-07-18 01:09] VITALS: BP 101/68
[2016-07-18] MEDS: PIPERACILLIN/TAZO/PMX 3.375GM 50 ML IV SCH ×3 (02:55→17:16)
[2016-07-18] MEDS: GUAIFENESIN 200 MG TABLET PO SCH ×4 (05:30→20:45)
[2016-07-18 06:24] LABS: BLOOD UREA NITROGEN 17 mg/dL (7-18)
[2016-07-18 06:40] VITALS: BP 112/74
[2016-07-18] MEDS: SITAGLIPTIN 50MG TABLET PO SCH ×2 (08:30→20:44)
[2016-07-18] MEDS: INSULIN ASPART 100 UNITS/ML, PEN SQ-INSULIN SCH ×4 (08:30→20:49)
[2016-07-18] MEDS: METOPROLOL TARTRATE 50 MG TABLET PO SCH ×2 (08:31→20:44)
[2016-07-18] MEDS: RIVAROXABAN 20 MG TABLET PO SCH (08:31)
[2016-07-18] MEDS: FERROUS SULFATE 325 MG TABLET PO SCH ×2 (08:32→20:44)
[2016-07-18] MEDS: POLYETHYLENE GLYCOL 17 GM PACKET PO SCH (08:32)
[2016-07-18] MEDS: POTASSIUM CHLORIDE 20 MEQ TAB.ER.PRT PO SCH (08:32)
[2016-07-18] MEDS: DOCUSATE 100 MG CAPSULE PO SCH (08:32)
[2016-07-18] MEDS: AMIODARONE 200 MG TABLET PO SCH (08:32)
[2016-07-18] MEDS: FUROSEMIDE 40 MG TABLET PO SCH (09:00)
[2016-07-18] MEDS ORDERED: FURO40TA6 PO (09:23)
[2016-07-18] MEDS ORDERED: FERR325T20 PO (09:23)
[2016-07-18] MEDS ORDERED: Linezolid PO (09:23)
[2016-07-18] MEDS: LINEZOLID 600 MG TABLET PO SCH ×2 (09:59→20:45)
[2016-07-18] MEDS ORDERED: CATHFLO-ALTEPLASE 2 MG/2 ML CATHFLUSH ONE ×2 (10:00→10:30)
[2016-07-18 12:55] VITALS: BP 98/64
[2016-07-18 13:59] VITALS: BP 105/72
[2016-07-18 18:44] VITALS: BP 108/80
[2016-07-18] MEDS: ALBUTEROL/IPRATROPIUM 2.5MG/0.5MG, 3 ML NPPB SCH (21:02)
[2016-07-18] MEDS: OXYcodone 5 MG/5 ML ORAL.SOL UDC PO PRN (22:54)
[2016-07-19 01:05] VITALS: BP 95/71
[2016-07-19] MEDS: ACETAMINOPHEN 325 MG TABLET PO PRN (01:42)
[2016-07-19] MEDS: PIPERACILLIN/TAZO/PMX 3.375GM 50 ML IV SCH ×2 (01:47→08:39)
[2016-07-19] MEDS: GUAIFENESIN 200 MG TABLET PO SCH ×3 (06:39→16:22)
[2016-07-19 06:56] VITALS: BP 114/75
[2016-07-19] MEDS: LINEZOLID 600 MG TABLET PO SCH (08:01)
[2016-07-19] MEDS: AMIODARONE 200 MG TABLET PO SCH (08:01)
[2016-07-19] MEDS: SITAGLIPTIN 50MG TABLET PO SCH (08:01)
[2016-07-19] MEDS: RIVAROXABAN 20 MG TABLET PO SCH (08:01)
[2016-07-19] MEDS: METOPROLOL TARTRATE 50 MG TABLET PO SCH (08:02)
[2016-07-19] MEDS: FERROUS SULFATE 325 MG TABLET PO SCH (08:02)
[2016-07-19] MEDS: POTASSIUM CHLORIDE 20 MEQ TAB.ER.PRT PO SCH (08:02)
[2016-07-19] MEDS: DOCUSATE 100 MG CAPSULE PO SCH (08:02)
[2016-07-19] MEDS: FUROSEMIDE 40 MG TABLET PO SCH (08:02)
[2016-07-19] MEDS: POLYETHYLENE GLYCOL 17 GM PACKET PO SCH (08:03)
[2016-07-19] MEDS: INSULIN ASPART 100 UNITS/ML, PEN SQ-INSULIN SCH ×2 (08:39→12:07)
[2016-07-19 13:47] VITALS: BP 103/69
== END 2016-07-19 18:21 | DRG 177 ==
LOC: ED 20:26 → EDIP 21:30 → 4WST 22:47
DX: J15.6 Pneumonia due to other Gram-negative bacteria (principal); I50.33 Acute on chronic diastolic (congestive) heart failure; J96.01 Acute respiratory failure with hypoxia; K75.0 Abscess of liver; K57.92 Diverticulitis of intestine, part unspecified, without perforation or abscess without bleeding; E44.0 Moderate protein-calorie malnutrition; E87.2 Acidosis; D64.9 Anemia, unspecified; D86.9 Sarcoidosis, unspecified; E11.9 Type 2 diabetes mellitus without complications; E66.9 Obesity, unspecified; E78.5 Hyperlipidemia, unspecified; I11.0 Hypertensive heart disease with heart failure; I48.91 Unspecified atrial fibrillation; M81.0 Age-related osteoporosis without current pathological fracture; R59.0 Localized enlarged lymph nodes; Y95 Nosocomial condition; Z68.28 Body mass index [BMI] 28.0-28.9, adult; Z88.2 Allergy status to sulfonamides; Z88.5 Allergy status to narcotic agent; Z79.01 Long term (current) use of anticoagulants; Z80.0 Family history of malignant neoplasm of digestive organs; Z86.711 Personal history of pulmonary embolism; Z91.14 Patient's other noncompliance with medication regimen; Z90.49 Acquired absence of other specified parts of digestive tract; Z90.89 Acquired absence of other organs; Z79.899 Other long term (current) drug therapy; Z82.3 Family history of stroke
CPT/HCPCS: 36415; 71010; 71250; 74177; 80048; 80202; 82040; 82164; 82962; 83036; 83605; 83880; 84145; 85025; 85610; 85730; 86140; 86850; 86900; 87040; 87070; 87205; 93005; 94640; 96365; J0696; J1815; J2543; J2997; J3370; J7620; Q0162; Q9967; J7050

== ENCOUNTER 2016-07-25 01:01 | Inpatient (IN) | payer MEDICARE ==
[~2016-07-25] VITALS: Ht 172.7 cm; Wt 102.6 kg
[~2016-07-25 01:01] MED LIST changes: +DOXY100C15 PO; +FERR325T20 PO; +FURO40TA6 PO; +IPRA3AMP NEB; +Linezolid PO
[2016-07-25] MEDS ORDERED: SODIUM CHLORIDE 0.9% 1,000ML IVBOLUS ONE ×2 (01:30→02:30)
[2016-07-25 02:06] LABS: BLOOD UREA NITROGEN 28 mg/dL (7-18)
[2016-07-25 02:15] LABS: IS PT STATUS REG ER OR PRE ER? YES
[2016-07-25 02:16] LABS: DIFF TOTAL CELLS COUNTED 100 CELL DIFF
[2016-07-25 02:18] LABS: ANISOCYTOSIS 1+; VERIFY COUNTS? YES
[2016-07-25 02:19] LABS: LARGE PLATELETS 1+
[2016-07-25] MEDS ORDERED: PIPERACILLIN/TAZO/PMX 3.375GM 50 ML ONE (02:25)
[2016-07-25] MEDS ORDERED: VANCOMYCIN 1,400 MG in SODIUM CHLORIDE 0.9% 250 ML IV ONE (02:30)
[2016-07-25] MEDS ORDERED: VANCOMYCIN PER PHARMACY IV ONE (02:30)
[2016-07-25] MEDS ORDERED: PIPERACILLIN/TAZO/PMX 3.375GM 50 ML IVPB ONE (02:30)
[2016-07-25 02:44] LABS: POLYCHROMASIA 1+
[2016-07-25] MEDS ORDERED: SODIUM CHLORIDE 0.9% 1,000 ML IV ONE (03:17)
[2016-07-25] MEDS ORDERED: ONDANSETRON 2MG/ML, 2ML IVPush PRN (03:30)
[2016-07-25] MEDS ORDERED: ONDANSETRON 2MG/ML, 2ML IVPB PRN (04:00)
[2016-07-25] MEDS ORDERED: PHARMACY MAY ADJ FOR RENAL FX MC PRN (04:00)
[2016-07-25] MEDS ORDERED: PIPERACILLIN/TAZO/PMX 4.5GM 100 ML IVPB SCH (04:00)
[2016-07-25] MEDS ORDERED: VANCOMYCIN PER PHARMACY MC PRN (04:00)
[2016-07-25 04:05] LABS: ABG COLLECTION SITE LEFT RADIAL; COLLATERAL CIRCULATION TESTING NORMAL
[2016-07-25] MEDS ORDERED: FAMOTIDINE 20 MG/2 ML ONE (04:26)
[2016-07-25] MEDS: FAMOTIDINE 20 MG/2 ML IV SCH ×2 (04:28→17:29)
[2016-07-25] MEDS: SODIUM CHLORIDE 0.9% 1,000 ML IV SCH ×2 (05:27→09:44)
[2016-07-25] MEDS: INSULIN ASPART 100 UNITS/ML, PEN SQ-INSULIN SCH ×4 (05:55→20:49)
[2016-07-25] MEDS: ALBUTEROL/IPRATROPIUM 2.5MG/0.5MG, 3 ML NPPB SCH ×4 (07:20→19:16)
[2016-07-25 08:14] LABS: ABG COLLECTION SITE RIGHT BRACHIAL; COLLATERAL CIRCULATION TESTING NORMAL
[2016-07-25] MEDS: LINEZOLID 600 MG TABLET PO SCH ×2 (09:00→20:47)
[2016-07-25] MEDS ORDERED: MICAFUNGIN 100 MG IVPB SCH (10:00)
[2016-07-25] MEDS: MICAFUNGIN 100 MG in SODIUM CHLORIDE 0.9% 100 ML IV SCH (10:34)
[2016-07-25] MEDS: MEROPENEM 500 MG in SODIUM CHLORIDE 0.9% 100 ML IV SCH ×2 (12:13→22:07)
[2016-07-25 15:18] LABS: IS PT STATUS REG ER OR PRE ER? NO
[2016-07-25 15:19] LABS: BLOOD UREA NITROGEN 37 mg/dL (7-18)
[2016-07-25] MEDS ORDERED: FAMOTIDINE 20 MG/2 ML IV SCH (20:26)
[2016-07-25] MEDS ORDERED: SODIUM CHLORIDE 0.9% 500 ML IV ONE (20:30)
[2016-07-25] MEDS ORDERED: FAMOTIDINE 20 MG TABLET PO SCH (21:00)
[2016-07-26] MEDS: ALBUTEROL/IPRATROPIUM 2.5MG/0.5MG, 3 ML NPPB SCH ×5 (00:48→21:50)
[2016-07-26 06:12] LABS: BLOOD UREA NITROGEN 43 mg/dL (7-18)
[2016-07-26 06:16] LABS: ABG COLLECTION SITE RIGHT BRACHIAL
[2016-07-26] MEDS: INSULIN ASPART 100 UNITS/ML, PEN SQ-INSULIN SCH ×4 (06:22→21:00)
[2016-07-26] MEDS ORDERED: PROPOFOL 10 MG/ML, 100ML IV ONE (08:00)
[2016-07-26] MEDS ORDERED: SODIUM CHLORIDE 0.9% 1,000ML IVBOLUS ONE ×2 (08:00→12:30)
[2016-07-26] MEDS ORDERED: VECURONIUM 10 MG ONE (08:00)
[2016-07-26] MEDS ORDERED: PROPOFOL 10 MG/ML, 20ML ONE (08:00)
[2016-07-26] MEDS: LINEZOLID 600 MG TABLET PO SCH ×2 (09:00→21:26)
[2016-07-26] MEDS ORDERED: LIDOCAINE-MPF 1%, 2ML ENDO PRN (10:00)
[2016-07-26] MEDS ORDERED: NOREPINEPHRINE 4 MG in SODIUM CHLORIDE 0.9% 246 ML IV PRN (10:00)
[2016-07-26] MEDS: MEROPENEM 1,000 MG in SODIUM CHLORIDE 0.9% 100 ML IV SCH ×2 (10:42→22:01)
[2016-07-26] MEDS: MICAFUNGIN 100 MG in SODIUM CHLORIDE 0.9% 100 ML IV SCH (10:42)
[2016-07-26] MEDS: HEPARIN 5,000 UNITS/ML, 1ML SQ SCH ×2 (10:43→19:21)
[2016-07-26] MEDS: SODIUM CHLORIDE 0.9% 1,000 ML IV SCH (12:07)
[2016-07-26 12:28] LABS: ABG COLLECTION SITE RIGHT BRACHIAL; COLLATERAL CIRCULATION TESTING NORMAL
[2016-07-26] MEDS ORDERED: PROPOFOL 10 MG/ML, 20ML IV ONE (13:00)
[2016-07-26] MEDS ORDERED: VECURONIUM 10 MG IVPush ONE (13:00)
[2016-07-26 16:27] LABS: ABG COLLECTION SITE RIGHT BRACHIAL
[2016-07-26] MEDS: SODIUM ACETATE 150 MEQ in DEXTROSE 5% 1,000 ML IV SCH (17:18)
[2016-07-26] MEDS: PROPOFOL 100 ML IV PRN (19:44)
[2016-07-26] MEDS: FAMOTIDINE 20 MG/2 ML IV SCH (21:26)
[2016-07-26] MEDS: NOREPINEPHRINE 8 MG in SODIUM CHLORIDE 0.9% 242 ML IV PRN (22:00)
[2016-07-27] MEDS: ALBUTEROL/IPRATROPIUM 2.5MG/0.5MG, 3 ML NPPB SCH ×6 (02:08→22:08)
[2016-07-27] MEDS: HEPARIN 5,000 UNITS/ML, 1ML SQ SCH ×3 (02:39→17:20)
[2016-07-27 04:12] VITALS: BP 122/56
[2016-07-27 04:32] LABS: ABG COLLECTION SITE LEFT RADIAL; COLLATERAL CIRCULATION TESTING NORMAL
[2016-07-27] MEDS: SODIUM ACETATE 150 MEQ in DEXTROSE 5% 1,000 ML IV SCH ×4 (05:25→21:38)
[2016-07-27 06:00] LABS: BLOOD UREA NITROGEN 54 mg/dL (7-18)
[2016-07-27] MEDS: INSULIN ASPART 100 UNITS/ML, PEN SQ-INSULIN SCH ×4 (06:24→20:49)
[2016-07-27] MEDS ORDERED: MAGNESIUM SULFATE PMX 4GM/100M 100 ML IV ONE (07:00)
[2016-07-27] MEDS: NYSTATIN TOPICAL POWDER 15GM TP SCH ×2 (09:30→20:37)
[2016-07-27] MEDS: PROPOFOL 100 ML IV PRN ×2 (10:41→20:20)
[2016-07-27] MEDS: CLOTRIMAZOLE CRM 1%, 15GM TP PRN ×2 (10:42→20:37)
[2016-07-27] MEDS: MICAFUNGIN 100 MG in SODIUM CHLORIDE 0.9% 100 ML IV SCH (10:42)
[2016-07-27] MEDS: LINEZOLID 600 MG TABLET PO SCH ×2 (10:42→21:05)
[2016-07-27] MEDS: NOREPINEPHRINE 8 MG in SODIUM CHLORIDE 0.9% 242 ML IV PRN (10:48)
[2016-07-27] MEDS: MEROPENEM 500 MG in SODIUM CHLORIDE 0.9% 100 ML IV SCH ×2 (13:23→21:38)
[2016-07-27] MEDS: FAMOTIDINE 20 MG/2 ML IV SCH (20:29)
[2016-07-27] MEDS: CLOTRIMAZOLE CRM 1%, 15GM TP SCH (20:37)
[2016-07-28] VITALS (7 sets, daily range): BP systolic 93–113; BP diastolic 41–77
[2016-07-28] MEDS: ALBUTEROL/IPRATROPIUM 2.5MG/0.5MG, 3 ML NPPB SCH ×5 (02:03→18:48)
[2016-07-28] MEDS: SODIUM ACETATE 150 MEQ in DEXTROSE 5% 1,000 ML IV SCH (02:46)
[2016-07-28] MEDS: PROPOFOL 100 ML IV PRN ×3 (02:47→23:59)
[2016-07-28] MEDS: HEPARIN 5,000 UNITS/ML, 1ML SQ SCH ×3 (02:47→19:50)
[2016-07-28 04:57] LABS: ABG COLLECTION SITE RIGHT RADIAL; COLLATERAL CIRCULATION TESTING NORMAL
[2016-07-28 06:02] LABS: BLOOD UREA NITROGEN 38 mg/dL (7-18)
[2016-07-28] MEDS: MEROPENEM 500 MG in SODIUM CHLORIDE 0.9% 100 ML IV SCH ×2 (06:21→21:50)
[2016-07-28] MEDS: INSULIN ASPART 100 UNITS/ML, PEN SQ-INSULIN SCH ×4 (06:22→20:49)
[2016-07-28] MEDS ORDERED: POTASSIUM CHLORIDE 10% 40 MEQ/30 ML UDC PO ONE (07:30)
[2016-07-28] MEDS ORDERED: MAGNESIUM SULFATE PMX 2GM/50ML 50 ML IV ONE (07:30)
[2016-07-28 08:29] LABS: ABG COLLECTION SITE RIGHT RADIAL; COLLATERAL CIRCULATION TESTING NORMAL; FIO2 50 %
[2016-07-28] MEDS ORDERED: MEROPENEM 500 MG in SODIUM CHLORIDE 0.9% 50 ML IV SCH (08:58)
[2016-07-28] MEDS: LINEZOLID 600 MG TABLET PO SCH ×2 (09:30→20:43)
[2016-07-28] MEDS: INSULIN DETEMIR 100 UNITS/ML, PEN SQ-INSULIN SCH ×2 (09:31→20:50)
[2016-07-28] MEDS: CLOTRIMAZOLE CRM 1%, 15GM TP SCH ×2 (09:32→20:43)
[2016-07-28] MEDS: NYSTATIN TOPICAL POWDER 15GM TP SCH ×2 (09:32→20:43)
[2016-07-28 10:14] LABS: ANISOCYTOSIS 2+
[2016-07-28 10:15] LABS: MICROCYTOSIS 1+; TARGET CELLS 1+
[2016-07-28 10:16] LABS: POIKILOCYTOSIS 1+; SPHEROCYTES 1+
[2016-07-28 10:17] LABS: HYPOCHROMIA 1+
[2016-07-28] MEDS: ALBUMIN HUMAN 25% 100 ML IV SCH ×3 (11:57→23:20)
[2016-07-28] MEDS: POTASSIUM CHLORIDE 20 MEQ in SODIUM CHLORIDE 0.9% 1,000 ML IV SCH ×2 (13:10→23:20)
[2016-07-28] MEDS: MICAFUNGIN 100 MG in SODIUM CHLORIDE 0.9% 100 ML IV SCH (13:11)
[2016-07-28] MEDS: FAMOTIDINE 20 MG/2 ML IV SCH (19:49)
[2016-07-29] MEDS: HEPARIN 5,000 UNITS/ML, 1ML SQ SCH (03:12)
[2016-07-29] MEDS: INSULIN ASPART 100 UNITS/ML, PEN SQ-INSULIN SCH (03:12)
[2016-07-29 04:00] VITALS: BP 109/61
[2016-07-29 04:48] LABS: ABG COLLECTION SITE RIGHT RADIAL; COLLATERAL CIRCULATION TESTING NORMAL
[2016-07-29 05:18] LABS: BLOOD UREA NITROGEN 30 mg/dL (7-18)
[2016-07-29] MEDS: MEROPENEM 500 MG in SODIUM CHLORIDE 0.9% 100 ML IV SCH (05:28)
[2016-07-29] MEDS: PROPOFOL 100 ML IV PRN (05:28)
[2016-07-29] MEDS: ALBUTEROL/IPRATROPIUM 2.5MG/0.5MG, 3 ML NPPB SCH (06:47)
[2016-07-29] MEDS: POTASSIUM CHLORIDE 20 MEQ in SODIUM CHLORIDE 0.9% 1,000 ML IV SCH (08:19)
[2016-07-29] MEDS ORDERED: LORazepam 2 MG/ML, 1ML IV ONE ×2 (12:00)
[2016-07-29] MEDS ORDERED: morphine SULFATE 10 MG/ML, 1ML IV ONE (12:00)
[2016-07-29] MEDS ORDERED: ATROPINE OPHTH SOLN 1%, 2ML PO PRN (12:00)
[2016-07-29] MEDS ORDERED: MORPHINE SULFATE 4 MG/ML, 1ML IVPush PRN (13:00)
== END 2016-07-29 16:30 | disposition expired | DRG 853 ==
LOC: ED 01:26 → EDIP 03:05 → CCU 05:10
PROVIDERS: ADMIT Internal Medicine; ATTEND Internal Medicine
PROC: 0T9B70Z Drainage of Bladder with Drainage Device, Via Natural or Artificial Opening (ICD-10-PCS; principal; 2016-07-25)
PROC: 5A1945Z Respiratory Ventilation, 24-96 Consecutive Hours (ICD-10-PCS; 2016-07-26)
PROC: 0BH17EZ Insertion of Endotracheal Airway into Trachea, Via Natural or Artificial Opening (ICD-10-PCS; 2016-07-26)
PROC: 0B9F8ZZ Drainage of Right Lower Lung Lobe, Via Natural or Artificial Opening Endoscopic (ICD-10-PCS; 2016-07-27)
PROC: 30233N1 Transfusion of Nonautologous Red Blood Cells into Peripheral Vein, Percutaneous Approach (ICD-10-PCS; 2016-07-28)
DX: A41.9 Sepsis, unspecified organism (principal); J96.01 Acute respiratory failure with hypoxia; N17.0 Acute kidney failure with tubular necrosis; I50.33 Acute on chronic diastolic (congestive) heart failure; E43 Unspecified severe protein-calorie malnutrition; R65.21 Severe sepsis with septic shock; J15.6 Pneumonia due to other Gram-negative bacteria; G93.41 Metabolic encephalopathy; E87.4 Mixed disorder of acid-base balance; I11.0 Hypertensive heart disease with heart failure; E11.9 Type 2 diabetes mellitus without complications; E78.5 Hyperlipidemia, unspecified; Z51.5 Encounter for palliative care; D63.8 Anemia in other chronic diseases classified elsewhere; E87.5 Hyperkalemia; R23.3 Spontaneous ecchymoses; F41.9 Anxiety disorder, unspecified; I27.2 Other secondary pulmonary hypertension; D50.9 Iron deficiency anemia, unspecified; Y95 Nosocomial condition; I48.91 Unspecified atrial fibrillation; K57.90 Diverticulosis of intestine, part unspecified, without perforation or abscess without bleeding; Z79.899 Other long term (current) drug therapy; Z88.2 Allergy status to sulfonamides; Z86.711 Personal history of pulmonary embolism; Z87.81 Personal history of (healed) traumatic fracture; Z88.5 Allergy status to narcotic agent; Z90.49 Acquired absence of other specified parts of digestive tract; Z68.34 Body mass index [BMI] 34.0-34.9, adult; Z90.89 Acquired absence of other organs; Z66 Do not resuscitate
CPT/HCPCS: 31624; 36415; 36600; 71010; 74176; 80048; 80076; 81001; 82040; 82378; 82570; 82803; 82805; 82962; 83605; 83615; 83735; 83880; 84145; 84300; 84478; 84484; 85025; 86301; 86850; 86900; 86923; 87015; 87040; 87070; 87077; 87081; 87086; 87102; 87106; 87116; 87186; 87205; 87206; 93005; 93306; 94002; 94003; 94640; 96365; 96366; 96368; J1644; J1815; J2185; J2248; J2405; J2543; J2704; J3370; J3480; J7070; J7620; P9047; J2060; J2270; J3475; J7030; J7040; J7050; P9016; S0028